=== PATIENT | female | born 1940 | race Caucasian/White ===

== ENCOUNTER → 2017-02-09 | Outpatient (CLI) | payer BC ==
--- NOTE | 2017-02-09 23:29 | SP ---
DATE OF PROCEDURE: 02/09/2017 INDICATION: A 77-year-old lady with a history of syncope. DESCRIPTION OF PROCEDURE: Routine EEG was recorded digitally. Cdpmz-ne-czajx and fmnfj-wv-ikm jovanna ages were recorded and reviewed. All impedances were measured and recorded. Cap electrodes were pl aced in accordance with International 10-20 system of electrode placement. FINDINGS: Symmetrically distributed background activity of low to medium amplitude ranging in frequ ency between 8 to 10 cycles per second was seen in the awake state. Photic stimulation produces no definite driving. Hyperventilation was not performed. Eye opening attenuates the background. No epileptiform transients were seen. No signs of ongoing e lectrographic seizures or lateralized slowing. IMPRESSION: Normal study. Please correlate clinically. Dictated By: SPENCER DURBIN/GRACE Conf#: [id number] DID#: [id number]
== END | disposition home or self-care (01) ==
LOC: EEG 10:01
PROVIDERS: ATTEND Psychiatry & Neurology Neurology
DX: R55 Syncope and collapse (principal)
CPT/HCPCS: 95819